=== PATIENT | female | born 1945 | race Asian ===

== ENCOUNTER 2016-06-24 21:04 | Emergency (ER) | payer MEDICARE, OTHER ==
[~2016-06-24] VITALS: Ht 154.9 cm; Wt 45.5 kg
[~2016-06-24 21:04] MED LIST: NOCURR
[2016-06-24] MEDS ORDERED: ATOR40TA71 PO (21:12)
[2016-06-24] MEDS ORDERED: METF500T PO (21:12)
[2016-06-24 21:22] LABS: GLUCOSE,POINT OF CARE 262 MG/DL (70-110)
[2016-06-24 21:34] VITALS: BP 179/93
[2016-06-24] MEDS ORDERED: DiphenhydrAMINE HCL 25 MG CAPSULE PO ONE (21:45)
== END 2016-06-24 22:26 | disposition home or self-care (01) ==
LOC: EMS 21:06
DX: L03.211 Cellulitis of face (principal); E78.00 Pure hypercholesterolemia, unspecified; I10 Essential (primary) hypertension
CPT/HCPCS: 82962; 99282; 99283

== ENCOUNTER 2016-07-16 11:26 | Emergency (ER) | payer MEDICARE, OTHER ==
[~2016-07-16] VITALS: Ht 154.9 cm; Wt 45.5 kg
[~2016-07-16 11:26] MED LIST changes: +ATOR40TA71 PO; +METF500T PO; -NOCURR
[2016-07-16 13:11] LABS: GLUCOSE,POINT OF CARE 89 MG/DL (70-110)
[2016-07-16] MEDS ORDERED: IBUPROFEN 400 MG TABLET PO ONE (15:30)
[2016-07-16] MEDS ORDERED: AMOXICILLIN TRIHYDRATE 250 MG CAPSULE PO ONE (15:30)
[2016-07-16] MEDS ORDERED: ACETAMINOPHEN 500 MG TABLET PO ONE (15:30)
[2016-07-16 15:40] VITALS: BP 150/87
== END 2016-07-16 15:41 | disposition home or self-care (01) ==
LOC: EMS 11:28
DX: H66.93 Otitis media, unspecified, bilateral (principal); R51 Headache; E11.9 Type 2 diabetes mellitus without complications; E78.00 Pure hypercholesterolemia, unspecified
CPT/HCPCS: 82962; 99284

== ENCOUNTER 2018-08-01 13:40 | Emergency (ER) | payer MEDICARE, OTHER ==
[~2018-08-01] VITALS: Ht 157.5 cm; Wt 47.7 kg
[2018-08-01 15:05] LABS: BASOPHILS % (AUTO) 1.1 % (0.0-2.0); EOSINOPHILS % (AUTO) 0.5 % (1.0-6.0); HEMATOCRIT 38.7 % (36-46); HEMOGLOBIN 12.9 g/dL (12.0-16.0); LYMPHOCYTES # (AUTO) 1.9 K/uL (1.0-4.8); LYMPHOCYTES % (AUTO) 24.1 % (22.0-44.0); MEAN CORPUSCULAR HEMOGLOBIN 32.4 pg (26.0-34.0); MEAN CORPUSCULAR HGB CONC 33.4 G/dL (31.0-37.0); MEAN CORPUSCULAR VOLUME 97 fL (80-100); MONOCYTES # (AUTO) 0.6 K/uL (0.1-1.0); MONOCYTES % (AUTO) 7.2 % (2.0-9.0); NEUTROPHILS # (AUTO) 5.3 K/uL (1.8-7.7); NEUTROPHILS % (AUTO) 67.1 % (40.0-70.0); PLATELET COUNT (AUTO) 382 K/uL (150-450); RED BLOOD CELL COUNT(AUTO) 3.99 MIL/uL (4.00-5.20); RED CELL DISTRIBUTION WIDTH 12.2 % (11.5-14.5)
[2018-08-01 15:11] LABS: ANION GAP 11 mmol/L (8-16); CALCIUM, TOTAL 9.9 mg/dL (8.8-10.5); CARBON DIOXIDE 29 mmol/L (22-29); CHLORIDE 101 mmol/L (98-107); CREATININE 0.57 mg/dL (0.60-1.30); GLOMERULAR FILTR. RATE CALC > 60 mL/min (>60); GLUCOSE,RANDOM 194 mg/dL (70-110); POTASSIUM 3.8 mmol/L (3.5-5.1); SODIUM SERUM 141 mmol/L (136-145); UREA NITROGEN, BLOOD 7 mg/dL (7-18)
[2018-08-01 15:17] LABS: ALANINE AMINOTRANSFERASE 41 U/L (12-78); ALBUMIN 3.9 g/dL (3.4-5.0); ALKALINE PHOSPHATASE 131 U/L (46-116); ASPARTATE AMINOTRANSFERASE 26 U/L (15-37); BILIRUBIN,TOTAL 0.5 mg/dL (0.1-1.0)
[2018-08-01] MEDS ORDERED: LORazepam 1 MG TABLET PO ONE (15:45)
[2018-08-01 18:16] VITALS: BP 142/78
== END 2018-08-01 18:17 | disposition home or self-care (01) ==
LOC: EMS 13:41
DX: F43.0 Acute stress reaction (principal); R51 Headache; R03.0 Elevated blood-pressure reading, without diagnosis of hypertension; R42 Dizziness and giddiness; E78.00 Pure hypercholesterolemia, unspecified
CPT/HCPCS: 70450; 93005